=== PATIENT | male | born 1975 | race Caucasian/White ===

== ENCOUNTER 2019-08-15 13:27 | Emergency (ER) | payer OTHER, SELFPAY ==
--- NOTE | ~2019-08-15 | XR_ITS ---
XR hand RT min 3V DATE: 08/15/2019 13:54 INDICATION: Injury to fifth digit TECHNIQUE: 3 views COMPARISON: None FINDINGS: No fracture or dislocation, periosteal reaction or bone destruction. No radiopaque soft tis jaylin foreign body. There is soft tissue bandage around the fifth digit. IMPRESSION: No fracture or dislocation is detected Reviewed, dictated and finalized at location B.
[2019-08-15 13:34] VITALS: BP 130/83; PULSE 64; RESP 20; TEMP 36.6; O2SAT 100
--- NOTE | 2019-08-15 14:28 | ED.UPPEXIN ---
HPI - Extremity Injury (Upper) General Chief Complaint: Extremity Injury, Upper Stated Complaint: finger injury Time Seen by Provider: 08/15/19 13:45 Source: patient Mode of arrival: ambulatory Limitations: no limitations History of Present Illness HPI narrative: This is a 44 year old male that presents to the ER for right 5th finger injury sustained just prior to arrival. 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 Reports he caught his glove caught on a metal pole that spins. Took he hand with it and had to take off his glove. Reports he sustained a laceration to the right 5th finger. Reports he is up to date on tetanus. Denies decreased ROM or numbness. Related Data Home Medications Medication Instructions Recorded Confirmed eluxadoline [Viberzi] mg 08/15/19 Allergies Allergy/AdvReac Type Severity Reaction Status Date / Time NKDA Allergy Unknown Other Uncoded 08/15/19 13:37 Review of Systems Review of Systems: Narrative: CONSTITUTIONAL: Denies fever SKIN: Reports laceration MUSCULOSKELETAL: Reports joint pain, and myalgia. NEUROLOGIC: Denies numbness All systems reviewed & are unremarkable except as noted in HPI and below PMFSH Past Medical History Medical History (Updated 08/15/19 @ 15:36 by Flaca Root PA-C) History of irritable bowel syndrome Social History Social History (Updated 08/15/19 @ 14:31 by Flaca Root PA-C) Smoking status: Current some day smoker Exam Narrative: Exam Narrative: GENERAL: Well-appearing, well-nourished, and in no acute distress. HEAD: Normocephalic, atraumatic. EYES: EOMI. EXTREMITIES: Normal range of motion. Mild edema to the right 5th finger distal phalanx with overlying laceration to the palmar surface. Normal sensation. Normal radial pulses SKIN: Warm, dry, no rash. NEURO: No focal deficits. Alert and oriented x3. PSYCH: Normal mood and affect Course Vital Signs Vital signs: Vital Signs Temperature 97.8 F 08/15/19 13:34 Pulse Rate 64 08/15/19 13:34 Respiratory Rate 20 08/15/19 13:34 Blood Pressure 130/83 08/15/19 13:34 Pulse Oximetry 100 08/15/19 13:34 Temperature 97.8 F 08/15/19 15:00 Pulse Rate 64 08/15/19 13:34 Respiratory Rate 08/15/19 13:34 Blood Pressure 130/83 08/15/19 13:34 Pulse Oximetry 100 08/15/19 13:34 MDM - Extremity Injury (Upper) MDM Narrative Medical decision making narrative: Patient presents the emergency department for laceration to right fifth finger sustained just prior to arrival. Patient is up-to-date on tetanus. Wound was irrigated and closed with sutures. Right hand x-rays without acute findings. Patient was instructed on wound care. Will be given plastics for follow-up. Was given warnings to return to the ER Imaging Data Radiologist's impression: ITS Impressions Hand X-Ray 08/15/19 13:56 IMPRESSION: No fracture or dislocation is detected Critical Care Time Critical Care Time Critical Care Time: No Discharge Plan Discharge Clinical Impression: Laceration of right little finger w/o foreign body w/o damage to nail Qualifiers: Encounter type: initial encounter Qualified Code(s): S61.216A - Laceration without foreign body of right little finger without damage to nail, initial encounter Patient Disposition: Home, Self-Care Condition: Stable Instructions: Antibiotic Form, Care For Your Stitches (ED), Laceration (ED), Crush Injury (ED) Additional Instructions: Return to the emergency department if you experience fever, redness or swelling of your wound, abnormal drainage from your wound, numbness, or any other symptoms that are concerning to you. Take oral antibiotic as prescribed. Apply antibiotic ointment daily. Do not soak the wound. Clean with mild soap and water daily Follow-up with plastic surgery for wound check and suture removal in 10-14 days. Prescriptions: New cephalexin 500 mg capsule 500 mg PO Q8H 5 Days Qty: 15 RF: 0 No Actio
[2019-08-15 15:00] VITALS: TEMP 36.6
[2019-08-15 15:57] VITALS: BP 122/77; PULSE 77; RESP 20; TEMP 36.7; O2SAT 99
== END 2019-08-15 15:58 | disposition home or self-care (01) ==
PROVIDERS: Emergency Provider Emergency Medicine; PCP Family Medicine Adolescent Medicine
DX: S61.216A Laceration without foreign body of right little finger without damage to nail, initial encounter (principal); K58.9 Irritable bowel syndrome, unspecified; X58.XXXA Exposure to other specified factors, initial encounter
CPT/HCPCS: 12001; 73130; 99283; A9270

== ENCOUNTER 2020-10-16 00:41 | Day surgery (SDC) | payer OTHER, SELFPAY ==
[2020-10-07 13:49] VITALS: BMI 24.1
--- NOTE | 2020-10-15 11:27 | PM.HPGS ---
History of Present Illness History of Present Illness Consent: Risks, benefits, and alternatives have been discussed and questions answered. Patient agrees to proceed with procedure. Chief complaint: dysphagia, rectal bleeding Narrative: Luis Hallman is a 45 year old male who has been having dysphagia for solid foods such as chicken or vegetables. Things seem to get stuck in his mid chest. He also has had bright red blood in his stools for several months. Review of Systems Review of Systems: All systems reviewed & are unremarkable except as noted in HPI and below PMFSH Past Medical History Medical History BRBPR (bright red blood per rectum) Diarrhea Dysphagia Encounter for screening for malignant neoplasm of colon History of irritable bowel syndrome Irritable bowel syndrome with diarrhea Family History Family History Father Heart disease Social History Social History Smoking packs per day: 1 Smoking cigarettes per day: 20.0 Years smoked: 21 Smoking pack-years: 21.00 Smoking status: Former smoker Tobacco type: cigarettes Alcohol intake: current Drinks per week: 5 Substance use: never Living arrangements: with family Spiritual care concerns: No Meds Home Medications and Allergies Home Medications Medication Instructions Recorded Confirmed Type eluxadoline [Viberzi] 100 mg PO DAILY 10/07/20 10/07/20 History Allergies Allergy/AdvReac Type Severity Reaction Status Date / Time NKDA Allergy Unknown Other Uncoded 10/16/20 09:26 Exam Resp: Auscultation: clear to auscultation bilaterally Cardio: Rate: regular rate Rhythm: regular rhythm GI: GI Palp: Yes Soft to palpation and No Tenderness to palpation present (GI) Assessment and Plan Assessment and plan (1) Dysphagia: Code(s): R13.10 - Dysphagia, unspecified Status: Acute Assessment and Plan: EGD with possible biopsy or dilatation or cautery. (2) BRBPR (bright red blood per rectum): Code(s): K62.5 - Hemorrhage of anus and rectum Status: Acute Assessment and Plan: Colonoscopy with possible biopsy or polypectomy or cautery or injection of substances.
[2020-10-16 09:27] VITALS: BP 126/83; PULSE 65; RESP 16; TEMP 35.9; O2SAT 100; BMI 24.0
--- NOTE | 2020-10-16 09:39 | WPDANESEPPF ---
Anes - Initial Pre Proc Eval Procedure: Operation Date: 10/16/20 10:00 Proposed Procedures p Esophagogastroduodenoscopy & Colonoscopy - Kj Cartagena MD Date/Time: 10/16/20 09:39 Surgeon: Kj Cartagena MD Pre Op Diagnosis: dysphagia, rectal bleeding Patient Data Age: 45 Gender: M Height: 1.85 m Weight: 82.5 kg Last Vital Signs Temp 35.9 C L 10/16/20 09:27 Pulse 65 10/16/20 09:27 Resp 16 10/16/20 09:27 BP 126/83 10/16/20 09:27 Pulse Ox 100 10/16/20 09:27 Allergies Allergy/AdvReac Type Severity Reaction Status Date / Time NKDA Allergy Unknown Other Uncoded 10/16/20 09:26 Home Medications Medication Instructions Recorded Confirmed Type eluxadoline [Viberzi] 100 mg PO DAILY 10/07/20 10/07/20 History Patient hx anesthesia problems: none Family hx anesthesia problems: none PMFSH Past Medical History Medical History BRBPR (bright red blood per rectum) Diarrhea Dysphagia Encounter for screening for malignant neoplasm of colon History of irritable bowel syndrome Irritable bowel syndrome with diarrhea Family History Family History Father Heart disease Social History Social History Smoking packs per day: 1 Smoking cigarettes per day: 20.0 Years smoked: 21 Smoking pack-years: 21.00 Smoking status: Former smoker Tobacco type: cigarettes Alcohol intake: current Drinks per week: 5 Substance use: never Living arrangements: with family Spiritual care concerns: No Anes - Eval Final PreProcedure Day of Procedure 10/16/20 09:39 Patient weight: normal Heart: regular rate and rhythm Lungs: clear to auscultation Airway: Mallampati scale class 1 Neurological: alert and oriented Last oral intake: >/= 8 hours ASA classification: II Emergent: no Anesthetic plan: proceed Anesthesia type and monitoring: general GIVS and standard monitoring Informed Consent: The patient's anesthetic plan and its attendant risks and benefits were discussed with the patient/family/POA. Questions were solicited and answers provided to the satisfaction of the patient/family/POA.
[2020-10-16] MEDS: LACTATED RINGERS 1,000 ML 150 ML IV CONT (09:45)
[2020-10-16 10:57] VITALS: BP 106/76; PULSE 64; RESP 16; O2SAT 99
[2020-10-16 11:07] VITALS: BP 107/77; PULSE 56; RESP 16; O2SAT 99
[2020-10-16 11:17] VITALS: BP 111/78; PULSE 53; RESP 16; O2SAT 99
== END 2020-10-16 11:45 | disposition home or self-care (01) ==
PROVIDERS: PCP Family Medicine Adolescent Medicine; Visit Provider Internal Medicine Gastroenterology
PROC: 0DJ08ZZ Inspection of Upper Intestinal Tract, Via Natural or Artificial Opening Endoscopic (ICD-10-PCS; CPT 43235; principal; 2020-10-16 10:00)
DX: R13.10 Dysphagia, unspecified (principal); K62.5 Hemorrhage of anus and rectum; K21.00 Gastro-esophageal reflux disease with esophagitis, without bleeding; K58.0 Irritable bowel syndrome with diarrhea; K64.8 Other hemorrhoids; Z87.891 Personal history of nicotine dependence
CPT/HCPCS: 43249; 43239; 45378; 87081; 88305; C1726; J7120

== ENCOUNTER 2021-01-08 01:45 | Day surgery (SDC) | payer OTHER, SELFPAY ==
[2021-01-07 13:21] VITALS: BMI 23.3
[2021-01-08] VITALS (9 sets, daily range): BP systolic 102–118; BP diastolic 69–83; PULSE 43–65; RESP 16; TEMP 36.6; O2SAT 100; BMI 23.3
[2021-01-08 07:59] LABS: Basophils Percent Auto 0.2 % (0.2-1.2); Eosinophils Absolute Auto 0.1 K/mm3 (0-0.3); Eosinophils Percent Auto 2.4 % (0-4.4); Hemoglobin 15.6 g/dL (14.0-18.0); Immature Granulocyte Absolute 0.02 K/mm3 (0.00-0.031); Immature Granulocyte Percent A 0.4 % (0-0.5); Lymphocytes Absolute Auto 2.11 K/mm3 (0.9-3.2); Lymphocytes Percent Auto 39.4 % (18.3-44.2); Mean Corpuscular HGB Conc 34.7 g/dl (32-36); Mean Corpuscular Hemoglobin 30.2 pg (26-34); Mean Platelet Volume 9.9 fl (7.4-10.4); Monocytes Absolute Auto 0.4 K/mm3 (0.1-0.6); Monocytes Percent Auto 6.9 % (2.6-8.5); Neutrophils Absolute Auto 2.7 K/mm3 (1.3-6.7); Neutrophils Percent Auto 50.7 % (45.5-73.1); Platelet Count Result 169 k/mm3 (150-375); Red Blood Count 5.17 M/mm3 (4.6-6.20); Red Cell Distribution Width 12.3 % (11.5-14.5); White Blood Count 5.4 K/mm3 (4.5-10.0)
[2021-01-08 08:02] LABS: Anion Gap 7 mmol/L (8-16); Blood Urea Nitrogen 20 mg/dL (9-20); Calcium 9.5 mg/dL (8.4-10.2); Carbon Dioxide 28 mmol/L (22-30); Chloride 102 mmol/L (98-107); Estimated CRCL calculation 94 ml/min; Estimated Glomerular Filt Rate > 60; Glucose 95 mg/dL (65-110); Potassium 3.9 mmol/L (3.4-5.0); Sodium 137 mmol/L (137-145)
[2021-01-08 08:05] LABS: INR 0.9; Prothrombin Time 11.6 Seconds (11.1-14.7)
--- NOTE | 2021-01-08 09:01 | WPDMODSED ---
Moderate Sedation Note-Pt Data Patient Data Diagnosis: symptoms compatible with exertional angina, abnormal nuclear stress test Present Complaint: exertional chest pain Procedure to be performed/Plan: left heart catheterization Allergies Allergy/AdvReac Type Severity Reaction Status Date / Time NKDA Allergy Unknown Other Uncoded 01/07/21 13:13 Home Medications Medication Instructions Recorded Confirmed Type Viberzi 100 mg PO DAILY 10/07/20 01/07/21 History atorvastatin 20 mg PO DAILY 01/07/21 01/07/21 History Current Medications: Active Medications Sodium Chloride (Normal Saline Iv) 500 mls @ 100 mls/hr IV CONT .Q5H CHLOÉ Sedation/Anesthesia: No previous sedation/anesthesia problems (including family history). [facility] Past Medical History Medical History BRBPR (bright red blood per rectum) Diarrhea Dysphagia Encounter for screening for malignant neoplasm of colon History of irritable bowel syndrome Irritable bowel syndrome with diarrhea Family History Family History Father Heart disease Social History Social History Smoking packs per day: 1 Smoking cigarettes per day: 20.0 Years smoked: 21 Smoking pack-years: 21.00 Smoking status: Former smoker Tobacco type: cigarettes Alcohol intake: current Drinks per week: 5 Substance use: never Living arrangements: with family Spiritual care concerns: No Mod Sed Physical Exam Physical Exam Pre Procedural Exam: Normal: Appearance, Neck, Throat, Airway, Lungs, Heart Size, Heart Rate, Heart Rhythm, Neuro Exam and Extremities Hours since solid foods: 12 Hours since liquid intake: 12 Mallampati Classification: class II Internal Medicine - PN: Obj Da Vital Signs Vital Signs: Vital Signs - 24 hr 01/08/21 08:13 Temperature 36.6 C Pulse Rate 55 L Respiratory Rate 16 Blood Pressure 111/76 Pulse Oximetry 100 Meds/Results Medications: Active Medications Generic Name Dose Route Start Last Admin Trade Name Freq PRN Reason Stop Dose Admin Sodium Chloride 500 mls @ 100 mls/hr 01/08/21 07:00 Normal Saline Iv IV CONT .Q5H CHLOÉ Labs CBC & Chem 7: 01/08/21 07:33 01/08/21 07:33 Labs: Laboratory Results - last 24 hr 01/08/21 01/08/21 01/08/21 07:33 07:33 07:33 WBC 5.4 RBC 5.17 Hgb 15.6 Hct 45.0 MCV 87.0 MCH 30.2 MCHC 34.7 RDW 12.3 Plt Count 169 MPV 9.9 Immature Gran % (Auto) 0.4 Neut % (Auto) 50.7 Lymph % (Auto) 39.4 [place] % (Auto) 6.9 Eos % (Auto) 2.4 Baso % (Auto) 0.2 Lymph # (Auto) 2.11 [place] # (Auto) 0.4 Eos # (Auto) 0.1 Baso # (Auto) 0.0 Abs Immat Gran (auto) 0.02 Absolute Neuts (auto) 2.7 Absolute Nucleated RBC 0.0 Nucleated RBC % 0.0 PT 11.6 INR 0.9 Sodium 137 Potassium 3.9 Chloride 102 Carbon Dioxide 28 Anion Gap 7 L BUN 20 Creatinine 1.00 Estim Creat Clear Calc 94 Estimated GFR > 60 Glucose 95 Calcium 9.5 ASA Classification/Sedation ASA Classification/Sedation ASA Class: II Emergent: No Risks: Risks, benefits and alternatives explained and patient/family accepted plan for sedation. Patient re-evaluated immediately prior to sedation.
--- NOTE | 2021-01-08 09:32 | WPDCARDPROC ---
Cardiac Cath Procedure Note Date of procedure:: 01/08/21 Performing physician:: Prosper Tinoco MD Indication:: exertional chest discomfort mildly abnormal stress test Brief clinical history:: this is a 46-year-old man with no previous history of cardiac problems. He has been having some exertional chest discomfort with relatively high work load. A nuclear stress test was done which was electrocardiographically mildly abnormal but with no scintigraphic abnormalities. In this setting an angiogram has been recommended and for that he is admitted today as an outpatient. Procedure Procedure performed:: Left ventriculography coronary angiography Angio-Seal to right femoral artery Sedation/Medication given:: fentanyl 50 mg Versed 2 mg case start 904 a.m. case end time 9:27 a.m. sedation provided by Paulette Long RN, trained observer Access site:: right femoral artery Estimated blood loss:: 15 cc Procedure note:: patient was brought to the cardiac catheterization lab in the postabsorptive state where the right femoral triangle was prepared and draped in the usual fashion. Anesthesia was provided with 1% lidocaine infiltrated locally. Using the modified Seldinger technique a 5 [place] sheath was placed into the right femoral artery after this left heart catheterization was carried out. I used a 5 [place] angled pigtail catheter to measure left-sided hemodynamics and to inject LV g in the 30 degree HENRIQUEZ projection. Following this a standard 5 [place] FL4 catheter was used to engage and inject the left coronary artery in multiple projections. After this a 5 [place] JR4 catheter was used to engage inject the right coronary artery. The procedure was then terminated an angiogram was done the femoral artery through the sheath after which a 6 [place] Angio-Seal device was deployed at the puncture site with a good hemostatic result. The procedure had no complications and he left the manager laboratory with no evidence of groin hematoma. Findings:: Hemodynamics: Central aortic pressure was 110/64 left ventricle 110/0 end-diastolic 16 pullback across the aortic valve. Left ventricle: The LV is normal in size all segments contract appropriately the global ejection fraction is visually estimated at 55%. The left main coronary artery is nicely patent the left anterior descending is a medium caliber artery extending down to around the apex. The LAD is smooth and free of atherosclerosis. In the midportion of the LAD there is a discrete area of myocardial bridging identified. The circumflex is a moderate caliber artery giving rise to the marginal branches the circumflex is smooth and angiographically unremarkable. The right coronary artery is moderate caliber and dominant to the posterior circulation the right coronary artery is smooth and angiographically non disease. Conclusion:: 1. Right coronary dominant circulation with no angiographic evidence of coronary disease 2. 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 normal left ventricular systolic function Prosper Tinoco MD FACC
== END 2021-01-08 12:45 | disposition home or self-care (01) ==
PROVIDERS: PCP Family Medicine Adolescent Medicine; Visit Provider Specialist
PROC: 4A023N7 Measurement of Cardiac Sampling and Pressure, Left Heart, Percutaneous Approach (ICD-10-PCS; CPT 93452; principal; 2021-01-08 08:30)
DX: Q24.5 Malformation of coronary vessels (principal); R07.89 Other chest pain; K58.9 Irritable bowel syndrome, unspecified; E78.5 Hyperlipidemia, unspecified; Z87.891 Personal history of nicotine dependence; Z82.49 Family history of ischemic heart disease and other diseases of the circulatory system
CPT/HCPCS: 36415; 80048; 85025; 85610; 93458; C1760; C1887; C1894; G0269; J1644; J2250; J3010; J7040

== ENCOUNTER → 2022-10-19 16:08 | Outpatient (CLI) | payer OTHER, SELFPAY ==
--- NOTE | ~2022-10-19 | XR_ITS ---
Right Knee Technique: AP, lateral, and sunrise views were obtained. Clinical History: Pain Findings: No fracture or dislocation is seen. Findings suggestive of old Nikita-Schlatter's disease. Osseous alignment is anatomic. Joint spaces are preserved without degenerative or erosive change. Pro bable mild edematous change in Hoffa's fat pad, nonspecific. No joint effusion is seen. Impression: Probable mild edematous change in Hoffa's fat pad, nonspecific. 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 Reviewed, dictated and finalized at location M. Impression: Probable mild edematous change in Hoffa's fat pad, nonspecific. 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
== END ==
PROVIDERS: PCP Family Medicine Adolescent Medicine; Visit Provider Nurse Practitioner Family
DX: M92.521 Juvenile osteochondrosis of tibia tubercle, right leg (principal)
CPT/HCPCS: 73562